=== PATIENT | female | born 1975 | race Two or more races ===

== ENCOUNTER 2018-11-24 13:29 | Emergency (ER) | END 2018-11-24 13:50 | disposition home or self-care (01) | LOC: ER 13:29 | DX: Z53.21 Procedure and treatment not carried out due to patient leaving prior to being seen by health care provider (principal); R10.9 Unspecified abdominal pain ==

== ENCOUNTER 2018-11-24 14:56 | Inpatient (IN) | payer OTHER ==
[2018-11-24] MEDS ORDERED: KETOROLAC TROMETHAMINE 60 MG/2 ML SDV IM ONE (16:39)
--- NOTE | 2018-11-24 16:40 | ER Document Report ---
ED Medical Screen (RME) - General Chief Complaint: Abdominal Pain Stated Complaint: ABDOMINAL PAIN Time Seen by Provider: 11/24/18 16:38 Mode of Arrival: Ambulatory Information source: Patient Notes: Patient is a 43-year-old Kyrgyz-speaking female presented to the emergency department chief complaint of abdominal pain. Patient reports pain has been going on for 1 month. Patient reports pain is located in the right upper quadrant and shoots straight through to her back. She reports associated nausea, chills and headache. She denies any vomiting or diarrhea. Exam: Tenderness to palpation right upper quadrant, negative Roth sign. I have greeted and performed a rapid initial assessment of this patient. A comprehensive ED assessment and evaluation of the patient, analysis of test results and completion of the medical decision making process will be conducted by additional ED providers. Dictation of this chart was performed using voice recognition software; therefore, there may be some unintended grammatical errors. TRAVEL OUTSIDE OF THE [place] IN LAST 30 DAYS: No Physical Exam - Vital signs Vitals: Temp Pulse Resp BP Pulse Ox 98.4 F 91 18 102/60 95 11/24/18 15:17 11/24/18 15:17 11/24/18 15:17 11/24/18 15:17 11/24/18 15:17 Course - Vital Signs Vital signs: Temp Pulse Resp BP Pulse Ox 98.4 F 91 18 102/60 95 11/24/18 15:17 11/24/18 15:17 11/24/18 15:17 11/24/18 15:17 11/24/18 15:17
[2018-11-24 17:18] LABS: ABSOLUTE LYMPHOCYTES (AUTO) 1.9 10^3/uL (0.5-4.7); ABSOLUTE MONOCYTES (AUTO) 0.8 10^3/uL (0.1-1.4); ABSOLUTE NEUT (AUTO) 6.6 10^3/uL (1.7-8.2); BASOPHILS % (AUTO) 0.4 % (0-2); EOSINOPHILS % (AUTO) 0.5 % (0-6); HEMATOCRIT 32.3 % (36.0-47.0); HEMOGLOBIN 10.6 g/dL (12.0-15.5); LYMPHOCYTES % (AUTO) 19.8 % (13-45); MEAN CORPUSCULAR HEMOGLOBIN 28.4 pg (27.0-33.4); MEAN CORPUSCULAR HGB CONC 32.7 g/dL (32.0-36.0); MEAN CORPUSCULAR VOLUME 87 fl (80-97); MONOCYTES % (AUTO) 8.9 % (3-13); PLATELET COUNT 532 10^3/uL (150-450); RED BLOOD COUNT 3.71 10^6/uL (3.72-5.28); RED CELL DISTRIBUTION WIDTH 14.1 % (11.5-14.0); SEGMENTED NEUTROPHILS % (AUTO) 70.4 % (42-78); TOTAL CELLS COUNTED % (AUTO) 100 %; WHITE BLOOD COUNT 9.4 10^3/uL (4.0-10.5)
[2018-11-24 17:23] LABS: APPEARANCE,URINE CLEAR; BILIRUBIN,URINE NEGATIVE (NEGATIVE); COLOR,URINE YELLOW; GLUCOSE, URINE NEGATIVE (NEGATIVE); KETONES,URINE NEGATIVE (NEGATIVE); LEUKOCYTE ESTERASE,URINE TRACE (NEGATIVE); NITRITE,URINE NEGATIVE (NEGATIVE); PROTEIN,URINE NEGATIVE (NEGATIVE); URINE SPECIFIC GRAVITY 1.012
[2018-11-24 17:42] LABS: ALANINE AMINOTRANSFERASE 59 U/L (9-52); ALBUMIN 3.5 g/dL (3.5-5.0); ALKALINE PHOSPHATASE 105 U/L (38-126); ANION GAP 11 (5-19); ASPARTATE AMINO TRANSFERASE 27 U/L (14-36); BILIRUBIN,DIRECT 0.3 mg/dL (0.0-0.4); BILIRUBIN,TOTAL 0.5 mg/dL (0.2-1.3); BLOOD UREA NITROGEN 12 mg/dL (7-20); CARBON DIOXIDE 32 mmol/L (22-30); CHLORIDE 98 mmol/L (98-107); GLUCOSE 89 mg/dL (75-110); POTASSIUM 4.1 mmol/L (3.6-5.0); SODIUM 141.3 mmol/L (137-145); TOTAL PROTEIN 7.4 g/dL (6.3-8.2)
--- NOTE | 2018-11-24 18:45 | RADIOLOGY REPORT (SQ) ---
EXAM DESCRIPTION: U/S ABDOMEN LIMITED W/O DOP COMPLETED DATE/TIME: 11/24/2018 6:32 pm REASON FOR STUDY: RUQ pain COMPARISON: None. TECHNIQUE: Dynamic and static grayscale images acquired of the abdomen and recorded on PACS. Additio nal selected color Doppler and spectral images recorded. LIMITATIONS: None. FINDINGS: PANCREAS: No masses. Visualized pancreatic duct normal caliber. LIVER: No solid masses. Normal echotexture. 3 cm cyst. LIVER VASCULATURE: Normal directional flow of the main portal vein and hepatic veins. GALLBLADDER: No stones. Normal wall thickness. No pericholecystic fluid. ULTRASOUND-DETECTED CORDERO'S SIGN: Negative. INTRAHEPATIC DUCTS AND COMMON DUCT: CBD and intrahepatic ducts normal caliber. No filling defects. INFERIOR VENA CAVA: Not imaged. AORTA: No aneurysm. RIGHT KIDNEY: Normal size, 12.1 cm. There is a complex, partially cystic lesion involving the midpo rtion of the kidney. This measures 4.5 x 4.6 x 3.6 cm. PERITONEAL AND RIGHT PLEURAL SPACE: No ascites or effusions. OTHER: No other significant findings. IMPRESSION: Normal gallbladder. Hepatic cyst. Right renal lesion. Cannot exclude neoplasm. Consi romulo CT without with contrast. TECHNICAL DOCUMENTATION: JOB ID: [id number] [employer]- All Rights Reserved Reading location - IP/workstation name: [email or web address]
--- NOTE | 2018-11-24 21:09 | RADIOLOGY REPORT (SQ) ---
EXAM DESCRIPTION: CT ABDOMEN PELVIS WITH IV CONTRAST COMPLETED DATE/TME: 11/24/2018 19:27 CLINICAL HISTORY: right lower qad pain COMPARISON: None Available TECHNIQUE: Contiguous axial images of the abdomen and pelvis were obtained followed by reconstruction images. This exam was performed according to our departmental dose-optimization program, which includes automated exposure control, adjustment of the mA and/or kV according to patient size and/or use of iterative reconstruction technique. FINDINGS: Abnormal enhancement of the posterior aspect of the right kidney compatible with pyelonephritis. Two focal areas of low-attenuation within the posterior right kidney, one extending into the right perinephric space measuring approximately 1.9 cm compatible with abscess formation. There is no hydronephrosis. Linear opacities within the lungs may represent scar versus subsegmental atelectasis. There are hepatic cysts. Calcifications within the pelvis compatible with phleboliths. The liver, spleen, pancreas and left kidney are within normal limits. There is no hydronephrosis or renal stones. The gallbladder is unremarkable by CT criteria. Adrenal glands are within normal limits. Aorta is of normal caliber and tapering. There is no free fluid in the abdomen or pelvis. There is no bowel obstruction. The appendix is within normal limits. There is no pericecal inflammation. IMPRESSION: Findings compatible with right-sided pyelonephritis with underlying small abscess formation.
[2018-11-24] MEDS ORDERED: MORPHINE SULFATE 10 MG/ML INJ IV PRN ×2 (23:00→23:32)
[2018-11-24] MEDS ORDERED: ZOLPIDEM TARTRATE 5 MG TABLET PO PRN (23:12)
[2018-11-24] MEDS ORDERED: RINGERS SOLUTION,LACTATED 1,000 ML IV PRN (23:12)
[2018-11-24] MEDS ORDERED: MAGNESIUM HYDROXIDE SUSP 30 ML UDCUP PO PRN (23:12)
[2018-11-24] MEDS ORDERED: MAG HYDROX/AL HYDROX/SIMETH SUSP 30 ML UDCUP PO PRN (23:12)
[2018-11-24] MEDS ORDERED: ONDANSETRON HCL INJ/PF 4 MG/2 ML SDV IV PRN (23:12)
[2018-11-24] MEDS ORDERED: NICOTINE 21 MG/24 HR PATCH.TD24 TD PRN (23:23)
[2018-11-24] MEDS ORDERED: ACETAMINOPHEN 650 MG SUPP.RECT PR PRN (23:23)
[2018-11-24] MEDS ORDERED: ACETAMINOPHEN 325 MG TABLET PO PRN (23:23)
[2018-11-24] MEDS ORDERED: ERTAPENEM SODIUM 1 GM in NORMAL SALINE 50 ML IV ONE (23:30)
[2018-11-24] MEDS ORDERED: ERTAPENEM SODIUM INJ 1 GM VIAL IV PRN (23:30)
[2018-11-24] MEDS ORDERED: FAMOTIDINE 20 MG TABLET PO ONE (23:30)
--- NOTE | 2018-11-25 00:48 | ER Document Report ---
ED GI/ - General Chief Complaint: Abdominal Pain Stated Complaint: ABDOMINAL PAIN Time Seen by Provider: 11/24/18 16:38 Mode of Arrival: Ambulatory Information source: Patient Notes: Patient is a 44-year-old female comes emergency room complaining of abdominal pain. Patient states she is had pain in her abdominal area for the past month got progressively worse over the past 2 days. She points to the area around her right abdominal area including the umbilicus area and with pain around the right side. She states it is mostly on the right side but does occasionally venture off to the left. She complains of having some low-grade fevers and chills but no vomiting but excessive amount of nausea. She denies any dysuria or any hematuria. Patient states that she only has had surgery in her abdominal area with 3 C-sections. She is also had a common cyst removed from her belly. She has a history of low blood pressure not high blood pressure. Last menstrual period was due on the but she actually obtained it on the of the month which is unusual for her. Last bowel movement she had was on Thursday. She states that she is eating and drinking well. Patient only speaks U[place]ayan and I had to use the interpretation line twice tonight the connection number on the first time was [id number] and on the second connection it was [id number] TRAVEL OUTSIDE OF THE [place] IN LAST 30 DAYS: No - HPI Patient complains to provider of: Abdominal pain Onset: Other - 1 month Timing/Duration: Gradual Quality of pain: Sharp, Throbbing Severity at maximum: Severe Severity in ED: Moderate Pain Level: 3 Location: RLQ, Right flank Vaginal bleeding (Compared to normal period): None Menstrual period history: Abnormal : 3 Para: 3 Sexual history: Active - Related Data Allergies/Adverse Reactions: No Known Allergies Allergy (Unverified 11/24/18 17:52) Past Medical History - General Information source: Patient - Social History Smoking Status: Never Smoker Cigarette use (# per day): No Chew tobacco use (# tins/day): No Smoking Education Provided: No Frequency of alcohol use: None Drug Abuse: None Lives with: Spouse/Significant other Family History: Reviewed & Not Pertinent Patient has suicidal ideation: No Patient has homicidal ideation: No - Past Medical History Cardiac Medical History: Denies: Hx Coronary Artery Disease, Hx Hypertension Pulmonary Medical History: Denies: Hx Asthma, Hx COPD Neurological Medical History: Denies: Hx Seizures Endocrine Medical History: Denies: Hx Diabetes Mellitus Type 1, Hx Diabetes Mellitus Type 2 Renal/ Medical History: Denies: Hx Peritoneal Dialysis Malignancy Medical History: Reports: None GI Medical History: Denies: Hx Cirrhosis, Hx Hepatitis Musculoskeletal Medical History: Denies Hx Arthritis, Denies Hx Fibromyalgia Skin Medical History: Denies Hx Eczema, Denies Hx Psoriasis Traumatic Medical History: Reports: None Infectious Medical History: Reports: None. Denies: Hx Hepatitis Past Surgical History: Reports: None Review of Systems - Review of Systems Constitutional: No symptoms reported EENT: No symptoms reported Cardiovascular: No symptoms reported Respiratory: No symptoms reported Gastrointestinal: See HPI, Abdomen distended, Abdominal pain, Nausea. denies: Vomiting Genitourinary: No symptoms reported Female Genitourinary: No symptoms reported Musculoskeletal: No symptoms reported Skin: No symptoms reported Hematologic/Lymphatic: No symptoms reported Neurological/Psychological: No symptoms reported -: Yes All other systems reviewed and negative Physical Exam - Vital signs Vitals: Temp Pulse Resp BP Pulse Ox 98.4 F 91 18 102/60 95 11/24/18 15:17 11/24/18 15:17 11/24/18 15:17 11/24/18 15:17 11/24/18 15:17 Interpretation: Hypotensive - Notes Notes: PHYSICAL EXAMINATION: GENERAL: Well-appearing, well-nourished and in no acute distress. HEAD: Atraumatic, normocephalic. EYES: Pupils equal round and reactive to light, extraocular movements intact, conjunctiva are normal. ENT: Nares patent, oropharynx clear without exudates. Moist mucous membranes. NECK: Normal range of motion, supple without lymphadenopathy LUNGS: Breath sounds clear to auscultation bilaterally and equal. No wheezes rales or rhonchi. HEART: Regular rate and rhythm without murmurs ABDOMEN: Examination patient's abdomen shows to be somewhat distended. Some tympany in the upper quads to percussion. She deftly has some guarding on her right lower quadrant area especially near the umbilicus. She has negative rebound. She has negative psoas. She has negative obturator. Patient displays moderate amount of right sided flank pain to percussion. Tenderness on the right abdomen and goes into the right upper quadrant as well. But she does not display a positive Roth sign. She has bowel sounds that are present in all 4 quadrants. Female : deferred Musculoskeletal: Normal range of motion, no pitting or edema. No cyanosis. NEUROLOGICAL: . Normal speech, normal gait. Normal sensory, motor exams PSYCH: Normal mood, normal affect. SKIN: Warm, Dry, normal turgor, no rashes or lesions noted. Course - Re-evaluation Re-evalutation: 11/25/18 00:[address] had an unusual finding. It stated him findings from the radiologist abnormal enhancement the posterior aspect of the right kidney compatible with pyelonephritis. 2 focal areas of low-attenuation within the posterior right kidney, one extending into the right perinephric space measuring approximately 1.9 cm compatible with abscess formation there is no hydronephrosis. Linear opacities within the lungs may represent scar versus subsegmental atelectasis. There are hepatic cysts. Calcifications within the pelvis compatible with phleboliths. The liver spleen pancreas and left kidney are within normal limits there is no hydronephrosis or renal stones. The gallbladder is unremarkable by CT criteria. Adrenal glands are within normal limits. Aorta is of normal caliber and tapering. There is no free fluid in the abdomen or pelvis. There is no bowel obstruction. The appendix is within normal limits. There is no per icecal inflammation. Given these findings it is apparent the patient has a renal abscess. I discus sed the case first with my attending Dr. Moreira and she was concerned with being an abscess and felt like she had to be admitted. I contacted hospitalist [employer] special education teacher dandre and explained to him the situation and he felt that this was something that since we did not have a specialist in urology here if needed to be shipped out. I went and talked to the patient to find out that she is basically living in the car with her boyfriend and 2 kids. They have just moved here from [facility] and neither have a job yet. The patient elected for me to pick place for her to go. I attempted to contact [facility] and I put in contact with Christine the transfer center nurse. She was kind enough to connect me to the urologist high school special education teacher explained to him the situation and CT report results to include the labs which were basically normal with no white count. And a urine that was normal with just a trace of blood. He informed me that this is a really weird finding because pyelonephritis is a diagnosis of exclusion and CT is not a good representation of this. He felt th at the abscess was interesting but felt that if we shipped the patient there that it would go to medicine and they will have interventional radiology drain it. He was very acceptable of the idea of sending her there if we wanted to but we have to go through the emergency room. Emergency room there from my understanding had a 75 patient back up to be admitted to the hospital. I felt that I should at least inform her hospitalist of the information I was given by a urological specialist. I recontacted and explained to him what I was told by Dr. Lagunas and he graciously accepted patient into the hospital service here at the hospital and will contact interventional radiology tomorrow. - Vital Signs Vital signs: Temp Pulse Resp BP Pulse Ox 97.9 F 67 16 102/56 L 97 11/24/18 21:19 11/24/18 21:19 11/24/18 21:19 11/24/18 21:19 11/24/18 21:19 - Laboratory Result Diagrams: 11/24/18 16:50 11/24/18 16:50 Laboratory results interpreted by me: 11/24/18 11/24/18 11/24/18 16:50 16:50 16:50 RBC 3.71 L Hgb 10.6 L Hct 32.3 L RDW 14.1 H Plt Count 532 H Carbon Dioxide 32 H Creatinine 0.50 L ALT 59 H Urine Blood SMALL H Urine Urobilinogen 4.0 H Ur Leukocyte Esterase TRACE H Discharge - Discharge Clinical Impression: Renal abscess, right, Pyelonephritis Condition: Stable Disposition: ADMITTED INPATIENT Admitting Provider: Speedy (Hospitalist) Unit Admitted: Medical Floor
[2018-11-25 02:19] LABS: URINE AMPHETAMINES SCREEN NEGATIVE; URINE BARBITURATES SCREEN NEGATIVE; URINE BENZODIAZEPINES SCREEN NEGATIVE; URINE COCAINE SCREEN NEGATIVE; URINE MARIJUANA (THC) SCREEN NEGATIVE; URINE METHADONE SCREEN NEGATIVE; URINE PHENCYCLIDINE SCREEN NEGATIVE
[2018-11-25] MEDS: MORPHINE SULFATE 10 MG/ML INJ IV PRN ×2 (02:45→05:07)
--- NOTE | 2018-11-25 04:17 | PDOC H&P ---
History of Present Illness Admission Date/PCP: 11/24/2018 No PCP Patient complains of: Abdominal pain History of Present Illness: ARACELIS NAVA is a 43 year old female who presented to the emergency room with a 1 month history of abdominal pain. The patient admitted to a 1 month history of continuous deep right upper quadrant abdominal pain with radiation to the right costovertebral angle area. The pain has been of moderate to severe intensity and she has not identified any aggravating or ameliorating factors for the pain. Her pain has been associated with chronic nausea and intermittent chills without fever and intermittent headaches. Her pain and accompanying symptoms have significantly worsened over the last 2 to 3 days. She denies prior similar episodes. In the emergency room she was found to have a right perinephric abscess and was subsequently admitted to the hospital for initiation of antibiotic therapy and an interventional radiology consultation to aspirate/drain the right perinephric abscess and obtain content for cytology and culture. Past Medical History Cardiac Medical History: Denies: Coronary Artery Disease, Hypertension Pulmonary Medical History: Denies: Asthma, Chronic Obstructive Pulmonary Disease (COPD) EENT Medical History: Denies: Eyes - Eye problems, Ears - Ear problems Neurological Medical History: Denies: Multiple Sclerosis, Seizures Endocrine Medical History: Denies: Diabetes Mellitus Type 1, Diabetes Mellitus Type 2 Renal/ Medical History: Denies: Chronic Kidney Disease, Nephrolithiasis Malignancy Medical History: Reports: None GI Medical History: Denies: Cirrhosis, Hepatitis Musculoskeltal Medical History: Denies: Arthritis, Fibromyalgia Skin Medical History: Denies: Eczema, Psoriasis Psychiatric Medical History: Denies: Alcohol Dependency, Substance Abuse, Tobacco Dependency Traumatic Medical History: Reports: None Hematology: Denies: Anemia, Bleeding Tendencies Infectious Medical History: Reports: None Past Surgical History Past Surgical History: Reports: Section - X 3, Other - Ovarian cystectomy Social History Information Source: Patient Lives with: Spouse/Significant other Smoking Status: Never Smoker Frequency of Alcohol Use: None Hx Recreational Drug Use: No Drugs: None Hx Prescription Drug Abuse: No - Advance Directive Resuscitation Status: Full Code Surrogate healthcare decision maker:: Darnell Newton Family History Family History: CAD. denies: DM, Hypertension, Malignancy Parental Family History Reviewed: Yes Children Family History Reviewed: No Sibling(s) Family History Reviewed.: Yes Medication/Allergy Allergies/Adverse Reactions: No Known Allergies Allergy (Unverified 11/24/18 17:52) Review of Systems Constitutional: PRESENT: as per HPI, chills, headache(s). ABSENT: fever(s) Eyes: ABSENT: visual disturbances, other - Eye pain Ears: ABSENT: hearing changes, other - Ear pain Nose, Mouth, and Throat: ABSENT: mouth pain, sore throat Cardiovascular: ABSENT: chest pain, palpitations Respiratory: ABSENT: cough, dyspnea Gastrointestinal: PRESENT: as per HPI, abdominal pain, nausea. ABSENT: constipation, diarrhea, vomiting Genitourinary: ABSENT: dysuria, hematuria Musculoskeletal: PRESENT: as per HPI, back pain. ABSENT: joint swelling, muscle weakness Integumentary: ABSENT: pruritus, rash Neurological: ABSENT: confusion, convulsions, focal weakness, memory loss Psychiatric: ABSENT: anxiety, depression Endocrine: ABSENT: cold intolerance, heat intolerance Hematologic/Lymphatic: ABSENT: easy bleeding, easy bruising Physical Exam Vital Signs: Temp Pulse Resp BP Pulse Ox 97.9 F 67 16 102/56 L 97 11/24/18 21:19 11/24/18 21:19 11/24/18 21:19 11/24/18 21:19 11/24/18 21:19 Intake & Output 11/22/18 11/23/18 11/24/18 23:59 23:59 23:59 Weight 78.6 kg General appearance: PRESENT: no acute distress, cooperative Head exam: PRESENT: atraumatic, normocephalic Eye exam: ABSENT: conjunctival injection, scleral icterus Ear exam: PRESENT: normal external ear exam. ABSENT: drainage Mouth exam: PRESENT: dry mucosa, neck supple Neck exam: ABSENT: thyromegaly, tracheal deviation Respiratory exam: PRESENT: clear to auscultation chung, symmetrical, unlabored Cardiovascular exam: PRESENT: RRR. ABSENT: clicks, gallop, rubs Pulses: PRESENT: normal radial pulses, normal dorsalis pedis pul Vascular exam: PRESENT: normal capillary refill. ABSENT: pallor GI/Abdominal exam: PRESENT: normal bowel sounds, soft, tenderness - Moderate right upper quadrant tenderness on deep palpation Rectal exam: PRESENT: deferred Gentrourinary exam: PRESENT: other - Moderate tenderness to percussion over the right costovertebral angle Extremities exam: ABSENT: joint swelling, pedal edema, tenderness Musculoskeletal exam: PRESENT: full ROM, normal inspection Neurological exam: PRESENT: alert, oriented to person, oriented to place, oriented to time, CN II-XII grossly intact. ABSENT: motor sensory deficit Psychiatric exam: PRESENT: appropriate affect, normal mood Skin exam: PRESENT: dry, intact, warm. ABSENT: jaundice, rash, urticaria Results Laboratory Results: 11/24/18 16:50 11/24/18 16:50 11/24/18 11/24/18 11/24/18 16:50 16:50 16:50 WBC 9.4 RBC 3.71 L Hgb 10.6 L Hct 32.3 L MCV 87 MCH 28.4 MCHC 32.7 RDW 14.1 H Plt Count 532 H Seg Neutrophils % 70.4 Lymphocytes % 19.8 Monocytes % 8.9 Eosinophils % 0.5 Basophils % 0.4 Absolute Neutrophils 6.6 Absolute Lymphocytes 1.9 Absolute Monocytes 0.8 Absolute Eosinophils 0.0 Absolute Basophils 0.0 Sodium 141.3 Potassium 4.1 Chloride 98 Carbon Dioxide 32 H Anion Gap 11 BUN 12 Creatinine 0.50 L Est GFR ( Amer) > 60 Est GFR (Non-Af Amer) > 60 Glucose 89 Calcium 9.0 Total Bilirubin 0.5 AST 27 ALT 59 H Alkaline Phosphatase 105 Total Protein 7.4 Albumin 3.5 Serum HCG, Qual NEGATIVE Urine Color Urine Appearance Urine pH Ur Specific [place] Urine Protein Urine Glucose (UA) Urine Ketones Urine Blood Urine Nitrite Ur Leukocyte Esterase Urine WBC (Auto) Urine RBC (Auto) 11/24/18 16:50 WBC RBC Hgb Hct MCV MCH MCHC RDW Plt Count Seg Neutrophils % Lymphocytes % Monocytes % Eosinophils % Basophils % Absolute Neutrophils Absolute Lymphocytes Absolute Monocytes Absolute Eosinophils Absolute Basophils Sodium Potassium Chloride Carbon Dioxide Anion Gap BUN Creatinine Est GFR ( Amer) Est GFR (Non-Af Amer) Glucose Calcium Total Bilirubin AST ALT Alkaline Phosphatase Total Protein Albumin Serum HCG, Qual Urine Color YELLOW Urine Appearance CLEAR Urine pH 6.0 Ur Specific [place] 1.012 Urine Protein NEGATIVE Urine Glucose (UA) NEGATIVE Urine Ketones NEGATIVE Urine Blood SMALL H Urine Nitrite NEGATIVE Ur Leukocyte Esterase TRACE H Urine WBC (Auto) 4 Urine RBC (Auto) 2 Impressions: Abdomen Ultrasound 11/24/18 16:39 IMPRESSION: Normal gallbladder. Hepatic cyst. Right renal lesion. Cannot exclude neoplasm. Consider CT without with contrast. Abdomen/Pelvis CT 11/24/18 19:27 IMPRESSION: Findings compatible with right-sided pyelonephritis with underlying small abscess formation. Assessment and Plan - Diagnosis (1) Renal and perinephric abscess Is this a current diagnosis for this admission?: Yes Plan: Interventional radiology consultation will be obtained for aspiration/drainage of the right perinephric abscess. A specimen will be obtained for culture and cytology purposes. This process should be both therapeutic and diagnostic. (2) Pyelonephritis Is this a current diagnosis for this admission?: Yes Plan: Patient was pyelonephritis will be treated initially with ertapenem 1 g IV every 24 hours with the scope of her antibiotic therapy being narrowed once an infectious etiology has been identified. (3) Abdominal pain Qualifiers: Abdominal location: right upper quadrant Qualified Code(s): R10.11 - Right upper quadrant pain Is this a current diagnosis for this admission?: Yes Plan: Patient's abdominal pain will be treated with morphine sulfate 2 to 4 mg IV every 2 hours on a as needed basis per sliding scale. (4) Anemia Qualifiers: Anemia type: unspecified type Qualified Code(s): D64.9 - Anemia, unspecified Is this a current diagnosis for this admission?: Yes Plan: Patient has a normochromic normocytic anemia of uncertain etiology. Initial anemia studies are ordered further evaluation may be obtained either during this inpatient visit or on an outpatient basis as appropriate. - Time Time Spent with patient: 25-34 minutes Medications reviewed and adjusted accordingly: No - No home meds Anticipated discharge: Home - Inpatient Certification Based on my medical assessment, after consideration of the patient's comorbidities, presenting symptoms, or acuity I expect that the services needed warrant INPATIENT care.: Yes I certify that my determination is in accordance with my understanding of Medicare's requirements for reasonable and necessary INPATIENT services [42 CFR 412.3e].: Yes Medical Necessity: Need Close Monitoring Due to Risk of Patient Decompensation, Need for Surgery - Interventional radiology to aspirate/drain her right renal and perinephric abscess, Risk of Complication if Not Cared For in Hospital, Risk of Diagnosis Which Will Require Inpatient Eval/Care/Monitoring
[2018-11-25] MEDS: HEPARIN SOD (PORCINE) 5,000 UNIT/ML 1 ML SYRINGE SUBCUT SCH ×3 (05:13→21:39)
[2018-11-25 06:49] LABS: ABSOLUTE LYMPHOCYTES (AUTO) 1.6 10^3/uL (0.5-4.7); ABSOLUTE MONOCYTES (AUTO) 0.7 10^3/uL (0.1-1.4); ABSOLUTE NEUT (AUTO) 5.4 10^3/uL (1.7-8.2); ABSOLUTE RETICS # 0.039 10^6/uL (0.028-0.122); BASOPHILS % (AUTO) 0.5 % (0-2); EOSINOPHILS % (AUTO) 0.6 % (0-6); HEMATOCRIT 29.5 % (36.0-47.0); LYMPHOCYTES % (AUTO) 20.1 % (13-45); MEAN CORPUSCULAR HEMOGLOBIN 29.1 pg (27.0-33.4); MEAN CORPUSCULAR VOLUME 85 fl (80-97); MONOCYTES % (AUTO) 8.5 % (3-13); PLATELET COUNT 461 10^3/uL (150-450); RED BLOOD COUNT 3.45 10^6/uL (3.72-5.28); RED CELL DISTRIBUTION WIDTH 13.8 % (11.5-14.0); RETICULOCYTE COUNT (AUTO) 1.11 % (0.66-2.85); SEGMENTED NEUTROPHILS % (AUTO) 70.3 % (42-78); TOTAL CELLS COUNTED % (AUTO) 100 %; WHITE BLOOD COUNT 7.7 10^3/uL (4.0-10.5)
[2018-11-25 07:24] LABS: ANION GAP 8 (5-19); BLOOD UREA NITROGEN 8 mg/dL (7-20); CALCIUM 8.7 mg/dL (8.4-10.2); CARBON DIOXIDE 31 mmol/L (22-30); CHLORIDE 103 mmol/L (98-107); GLUCOSE 91 mg/dL (75-110); IRON(TIBC) 26.4 ug/dL (37-170); SODIUM 141.9 mmol/L (137-145)
[2018-11-25 08:12] LABS: FREE T3 2.82 pg/mL (2.77-5.27); FREE T4 (FREE THYROXINE) 0.64 ng/dL (0.78-2.19)
[2018-11-25 08:25] LABS: THYROID STIMULATING HORMONE 3.54 uIU/mL (0.47-4.68)
[2018-11-25 09:42] LABS: FOLATE > 20.00 ng/mL (>2.76)
[2018-11-25 09:47] LABS: INTERNATIONAL RATION (INR) 1.06; PROTHROMBIN TIME 14.4 SEC (11.4-15.4)
[2018-11-25 09:48] LABS: PARTIAL THROMBOPLASTIN TIME 35.3 SEC (23.5-35.8)
[2018-11-25] MEDS ORDERED: MIDAZOLAM 2 MG/2 ML INJ ONE (10:39)
[2018-11-25] MEDS ORDERED: FENTANYL CITRATE INJ/PF 100 MCG/2 ML AMPUL ONE (10:39)
[2018-11-25] MEDS: FAMOTIDINE 20 MG TABLET PO SCH ×2 (12:55→21:39)
[2018-11-25] MEDS: DOCUSATE SODIUM 100 MG/10 ML UDC PO SCH ×2 (12:55→18:28)
--- NOTE | 2018-11-25 13:19 | RADIOLOGY REPORT (SQ) ---
EXAM DESCRIPTION: CT DRAINAGE RETRO/PERITONEAL COMPLETED DATE/TIME: 11/25/2018 11:41 am REASON FOR STUDY: Right perinephric abscess on CT COMPARISON: Abdominal ultrasound 11/24/2018 CT abdomen pelvis 11/24/2018 TECHNIQUE: After obtaining informed consent and explaining the risks and benefits of conscious sedat ion,the patient agreed to the procedure. The patient was brought to the CT suite and was placed prone on the CT gurney. The patient was prepped and draped in the usual sterile fashion. Axial images wer e obtained for targeting of theright mid pole renal complex mass/abscess.. An appropriate access site was selected. IV conscious sedation was administered and physician direction by the registered nurse using 1 milligrams of Versed and 30 micrograms of fentanyl. Physiologic monitoring was provided befo re, during, and after sedation. The total sedation time was 30 minutes. Documentation face to face time, the performing proceduralist, spent monitoring the patient: [address] of the right kidney was performed to localize an approach for the right renal absce ss drainage. A percutaneous site was marked. Time out was performed. After skin prep and local lidocaine for skin and deep tissue anesthesia, an 18 gauge single wall nee dle was used to access the complex right posterior midpole renal mass. There was prompt return of pu rulent material. Aspirate was obtained and sent for Gram stain culture and sensitivity, fungal cultu re and AFB culture. These were submitted to the lab in a sterile container. At this point, a 0.38 guidewire was placed through the 18 gauge needle, coiled in the renal abscess. Tract was dilated with a 7 Russian dilator, and an 8 Russian locking pigtail was placed in the posteri or right renal abscess. Catheter up to an accordion drainage bag. No immediate postprocedure complications. Total of 6.[address] fluoro was used. 34 CT Fluoroscopic images were obtained and saved to PACS. All CT scanners at this facility use dose modulation, iterative reconstruction, and/or weight based d osing when appropriate to reduce radiation dose to as low as reasonably achievable (ALARA). [facility]: Dose Right [facility]: CareDose [facility]: Dose Right [facility]: Teradose 4D [facility]: [employer] RADIATION DOSE: 63 mGy. LIMITATIONS: None. FINDINGS: CT guided right renal abscess aspiration and drainage with CT fluoroscopy and IV conscious sedation. Specimen sent to the lab as above. Indwelling 8 Russian locking pigtail catheter in the p osterior right mid-pole kidney renal abscess IMPRESSION: CT GUIDED RIGHT RENAL ABSCESS DRAINAGE. CULTURES PENDING. NO IMMEDIATE COMPLICATIONS. RIGHT POSTERIOR MIDPOLE 8 GERMAN LOCKING PIGTAIL CATHETER IN PLACE. VACUUM ACCORDION SUCTION BAG TO THE CATHETER. CALL CT WITH ANY QUESTIONS OR IF THERE IS NEED FOR ANY NEW DRAINAGE BAG. IV CONSCIOUS SEDATION CT FLUORO COMMENT: Patient medication list reviewed:Yes- Quality ID# [id number]:Eligible professional attests to docu menting in the medical record they obtained, updated, or reviewed the patient's current medications.. Quality ID [id number]: Final reports for procedures using fluoroscopy that document radiation exposure jerrica ann, or exposure time and number of fluorographic images (if radiation exposure indices are not avail able) TECHNICAL DOCUMENTATION: JOB ID: [id number] Quality ID # [id number]: Final reports with documentation of one or more dose reduction techniques (e.g., A utomated exposure control, adjustment of the mA and/or kV according to patient size, use of iterative reconstruction technique) 2010 [employer]- All Rights Reserved Reading location - IP/workstation name: [email or web address]
[2018-11-25] MEDS ORDERED: RINGERS SOLUTION,LACTATED 1,000 ML IV PRN (18:25)
[2018-11-25] MEDS: ERTAPENEM SODIUM 1 GM in NORMAL SALINE 50 ML IV SCH (21:41)
[2018-11-26] MEDS: HEPARIN SOD (PORCINE) 5,000 UNIT/ML 1 ML SYRINGE SUBCUT SCH ×3 (05:47→21:24)
[2018-11-26 07:54] LABS: ABSOLUTE BASOPHILS # (AUTO) 0.1 10^3/uL (0.0-0.2); ABSOLUTE EOSINOPHILS # (AUTO) 0.1 10^3/uL (0.0-0.6); ABSOLUTE LYMPHOCYTES (AUTO) 1.9 10^3/uL (0.5-4.7); ABSOLUTE MONOCYTES (AUTO) 0.6 10^3/uL (0.1-1.4); ABSOLUTE NEUT (AUTO) 4.8 10^3/uL (1.7-8.2); BASOPHILS % (AUTO) 1.1 % (0-2); HEMATOCRIT 33.4 % (36.0-47.0); HEMOGLOBIN 11.3 g/dL (12.0-15.5); LYMPHOCYTES % (AUTO) 25.7 % (13-45); MEAN CORPUSCULAR HEMOGLOBIN 28.7 pg (27.0-33.4); MEAN CORPUSCULAR HGB CONC 33.7 g/dL (32.0-36.0); MEAN CORPUSCULAR VOLUME 85 fl (80-97); MONOCYTES % (AUTO) 7.7 % (3-13); PLATELET COUNT 548 10^3/uL (150-450); RED BLOOD COUNT 3.93 10^6/uL (3.72-5.28); SEGMENTED NEUTROPHILS % (AUTO) 64.5 % (42-78); TOTAL CELLS COUNTED % (AUTO) 100 %; WHITE BLOOD COUNT 7.4 10^3/uL (4.0-10.5)
[2018-11-26 08:18] LABS: ANION GAP 11 (5-19); BLOOD UREA NITROGEN 6 mg/dL (7-20); CALCIUM 9.2 mg/dL (8.4-10.2); CARBON DIOXIDE 27 mmol/L (22-30); CHLORIDE 101 mmol/L (98-107); GLUCOSE 85 mg/dL (75-110); POTASSIUM 4.3 mmol/L (3.6-5.0); SODIUM 138.8 mmol/L (137-145)
[2018-11-26] MEDS: DOCUSATE SODIUM 100 MG/10 ML UDC PO SCH ×2 (10:30→20:24)
[2018-11-26] MEDS: FAMOTIDINE 20 MG TABLET PO SCH ×2 (10:30→21:24)
[2018-11-26] MEDS ORDERED: BISACODYL 10 MG SUPP.RECT PR PRN (17:49)
--- NOTE | 2018-11-26 18:10 | PDOC PROGRESS REPORT ---
Subjective Progress Note for:: 11/26/18 Subjective:: Feeling better. Complaining of constipation. Reason For Visit: PERINEPHRIC ABSCESS Physical Exam Vital Signs: Temp Pulse Resp BP Pulse Ox 97.9 F 61 17 90/53 L 97 11/26/18 16:28 11/26/18 16:28 11/26/18 16:28 11/26/18 16:28 11/26/18 16:28 Intake & Output 11/25/18 11/26/18 11/27/18 06:59 06:59 06:59 Intake Total 1100 Output Total 400 3700 Balance -400 -2600 Weight 78.2 kg General appearance: PRESENT: no acute distress, well-developed Head exam: PRESENT: atraumatic, normocephalic Respiratory exam: PRESENT: clear to auscultation chung, symmetrical, unlabored. ABSENT: rales, tachypnea, wheezes Cardiovascular exam: PRESENT: RRR, +S1, +S2 GI/Abdominal exam: PRESENT: normal bowel sounds, soft, other - Drain in right flank. ABSENT: distended, tenderness Rectal exam: PRESENT: deferred Neurological exam: PRESENT: alert, awake, oriented to person, oriented to place, oriented to time, oriented to situation, CN II-XII grossly intact. ABSENT: motor sensory deficit Psychiatric exam: PRESENT: appropriate affect, normal mood. ABSENT: agitated, anxious Focused psych exam: ABSENT: delusional, restlessness Results Laboratory Results: 11/26/18 07:20 11/26/18 07:20 11/26/18 11/26/18 07:20 07:20 WBC 7.4 RBC 3.93 Hgb 11.3 L Hct 33.4 L MCV 85 MCH 28.7 MCHC 33.7 RDW 14.0 Plt Count 548 H Seg Neutrophils % 64.5 Lymphocytes % 25.7 Monocytes % 7.7 Eosinophils % 1.0 Basophils % 1.1 Absolute Neutrophils 4.8 Absolute Lymphocytes 1.9 Absolute Monocytes 0.6 Absolute Eosinophils 0.1 Absolute Basophils 0.1 Sodium 138.8 Potassium 4.3 Chloride 101 Carbon Dioxide 27 Anion Gap 11 BUN 6 L Creatinine 0.41 L Est GFR ( Amer) > 60 Est GFR (Non-Af Amer) > 60 Glucose 85 Calcium 9.2 Magnesium 2.2 Impressions: Retroperitoneal Abscess Drainage 11/24/18 00:00 IMPRESSION: CT GUIDED RIGHT RENAL ABSCESS DRAINAGE. CULTURES PENDING. NO IMMEDIATE COMPLICATIONS. RIGHT POSTERIOR MIDPOLE 8 [place] LOCKING PIGTAIL CATHETER IN PLACE. VACUUM ACCORDION SUCTION BAG TO THE CATHETER. CALL CT WITH ANY QUESTIONS OR IF THERE IS NEED FOR ANY NEW DRAINAGE BAG. IV CONSCIOUS SEDATION CT FLUORO Abdomen Ultrasound 11/24/18 16:39 IMPRESSION: Normal gallbladder. Hepatic cyst. Right renal lesion. Cannot exclude neoplasm. Consider CT without with contrast. Abdomen/Pelvis CT 11/24/18 19:27 IMPRESSION: Findings compatible with right-sided pyelonephritis with underlying small abscess formation. Assessment and Plan - Diagnosis (1) Renal and perinephric abscess Is this a current diagnosis for this admission?: Yes Plan: The abscess was drained 2 days ago. Cultures are growing gram-negative bacillus. I expect urine culture and drainage culture to be the same. There is been no significant drainage since the initial aspiration. Typically if there is no drainage or less than 5 to 10 mL over 24 hours the drain can be removed. (2) Constipation Qualifiers: Constipation type: unspecified constipation type Qualified Code(s): K59.00 - Constipation, unspecified Is this a current diagnosis for this admission?: Yes Plan: The patient reports no bowel movement since Thursday. I will utilize a bottle of citrate of magnesia, daily MiraLAX and bisacodyl suppository as needed. - Time Time Spent with patient: 25-34 minutes - Additional time was required for utilization of vamp marker. Anticipated discharge: Home Within: within 48 hours
--- NOTE | 2018-11-26 18:15 | PDOC PROGRESS REPORT ---
Subjective Progress Note for:: 11/25/18 Subjective:: Patient still has some discomfort but appears reasonably comfortable. Reason For Visit: PERINEPHRIC ABSCESS Physical Exam Vital Signs: Temp Pulse Resp BP Pulse Ox 97.9 F 74 18 97/55 L 96 11/25/18 16:29 11/25/18 16:29 11/25/18 16:29 11/25/18 16:29 11/25/18 16:29 Intake & Output 11/24/18 11/25/18 11/26/18 06:59 06:59 06:59 Output Total 400 500 Balance -400 -500 Weight 78.2 kg General appearance: PRESENT: no acute distress, cooperative, well-developed Head exam: PRESENT: atraumatic, normocephalic Respiratory exam: PRESENT: clear to auscultation chung, symmetrical, unlabored. ABSENT: rales, rhonchi, wheezes Cardiovascular exam: PRESENT: RRR, +S1, +S2 GI/Abdominal exam: PRESENT: normal bowel sounds, soft, other - Nephrostomy drain right flank. ABSENT: distended, tenderness Rectal exam: PRESENT: deferred Neurological exam: PRESENT: alert, awake, oriented to person, oriented to place, oriented to time, oriented to situation, other - Via translation Psychiatric exam: PRESENT: appropriate affect, normal mood. ABSENT: agitated, anxious Results Laboratory Results: 11/25/18 06:29 11/25/18 06:29 11/25/18 11/25/18 11/25/18 06:29 06:29 06:29 WBC 7.7 RBC 3.45 L Hgb 10.0 L Hct 29.5 L MCV 85 MCH 29.1 MCHC 34.0 RDW 13.8 Plt Count 461 H Seg Neutrophils % 70.3 Lymphocytes % 20.1 Monocytes % 8.5 Eosinophils % 0.6 Basophils % 0.5 Absolute Neutrophils 5.4 Absolute Lymphocytes 1.6 Absolute Monocytes 0.7 Absolute Eosinophils 0.0 Absolute Basophils 0.0 Retic Count (auto) 1.11 Absolute Retic 0.039 Sodium 141.9 Potassium 4.0 Chloride 103 Carbon Dioxide 31 H Anion Gap 8 BUN 8 Creatinine 0.40 L Est GFR ( Amer) > 60 Est GFR (Non-Af Amer) > 60 Glucose 91 Calcium 8.7 Magnesium 2.3 Iron 26.4 L TIBC 281 % Saturation 9 Ferritin 185.00 H Vitamin B12 688.0 Folate > 20.00 TSH 3.54 Free T4 0.64 L Free T3 pg/mL 2.82 Impressions: Retroperitoneal Abscess Drainage 11/24/18 00:00 IMPRESSION: CT GUIDED RIGHT RENAL ABSCESS DRAINAGE. CULTURES PENDING. NO IMMEDIATE COMPLICATIONS. RIGHT POSTERIOR MIDPOLE 8 [place] AND [place] LOCKING PIGTAIL CATHETER IN PLACE. VACUUM ACCORDION SUCTION BAG TO THE CATHETER. CALL CT WITH ANY QUESTIONS OR IF THERE IS NEED FOR ANY NEW DRAINAGE BAG. IV CONSCIOUS SEDATION CT FLUORO Abdomen Ultrasound 11/24/18 16:39 IMPRESSION: Normal gallbladder. Hepatic cyst. Right renal lesion. Cannot exclude neoplasm. Consider CT without with contrast. Abdomen/Pelvis CT 11/24/18 19:27 IMPRESSION: Findings compatible with right-sided pyelonephritis with underlying small abscess formation. Assessment and Plan - Diagnosis (1) Renal and perinephric abscess Is this a current diagnosis for this admission?: Yes Plan: Small amount of bloody drainage in the drainage bag from the pigtail catheter. The patient does not have any significant discomfort. She is afebrile. Awaiting culture from aspirate. Gram stain shows gram-negative bacilli. (2) Pyelonephritis Is this a current diagnosis for this admission?: Yes Plan: Gram-negative bacilli growing. Await final identification before narrowing the scope of antibiotic therapy. - Time Time Spent with patient: 15-24 minutes Medications reviewed and adjusted accordingly: Yes Anticipated discharge: Home
[2018-11-26] MEDS ORDERED: MAGNESIUM CITRATE 296 ML BOTTLE PO ONE (19:00)
[2018-11-26] MEDS: FERROUS SULFATE 325 MG TABLET PO SCH (20:24)
[2018-11-26] MEDS: ERTAPENEM SODIUM 1 GM in NORMAL SALINE 50 ML IV SCH (21:23)
[2018-11-27] MEDS: HEPARIN SOD (PORCINE) 5,000 UNIT/ML 1 ML SYRINGE SUBCUT SCH ×2 (05:54→13:17)
[2018-11-27 07:42] LABS: ABSOLUTE EOSINOPHILS # (AUTO) 0.1 10^3/uL (0.0-0.6); ABSOLUTE LYMPHOCYTES (AUTO) 1.8 10^3/uL (0.5-4.7); ABSOLUTE MONOCYTES (AUTO) 0.5 10^3/uL (0.1-1.4); ABSOLUTE NEUT (AUTO) 2.9 10^3/uL (1.7-8.2); BASOPHILS % (AUTO) 0.5 % (0-2); EOSINOPHILS % (AUTO) 1.6 % (0-6); HEMATOCRIT 30.9 % (36.0-47.0); HEMOGLOBIN 10.3 g/dL (12.0-15.5); LYMPHOCYTES % (AUTO) 33.7 % (13-45); MEAN CORPUSCULAR HEMOGLOBIN 28.3 pg (27.0-33.4); MEAN CORPUSCULAR HGB CONC 33.4 g/dL (32.0-36.0); MEAN CORPUSCULAR VOLUME 85 fl (80-97); PLATELET COUNT 510 10^3/uL (150-450); RED BLOOD COUNT 3.64 10^6/uL (3.72-5.28); RED CELL DISTRIBUTION WIDTH 13.9 % (11.5-14.0); SEGMENTED NEUTROPHILS % (AUTO) 55.2 % (42-78); TOTAL CELLS COUNTED % (AUTO) 100 %; WHITE BLOOD COUNT 5.3 10^3/uL (4.0-10.5)
[2018-11-27 07:58] LABS: ANION GAP 9 (5-19); BLOOD UREA NITROGEN 7 mg/dL (7-20); CALCIUM 8.7 mg/dL (8.4-10.2); CARBON DIOXIDE 30 mmol/L (22-30); CHLORIDE 101 mmol/L (98-107); GLUCOSE 88 mg/dL (75-110); POTASSIUM 4.7 mmol/L (3.6-5.0); SODIUM 140.3 mmol/L (137-145)
[2018-11-27] MEDS: FERROUS SULFATE 325 MG TABLET PO SCH (09:31)
[2018-11-27] MEDS: DOCUSATE SODIUM 100 MG/10 ML UDC PO SCH (09:31)
[2018-11-27] MEDS: FAMOTIDINE 20 MG TABLET PO SCH (09:31)
[2018-11-27] MEDS ORDERED: POLYETHYLENE GLYCOL 3350 POWDER 17 GM/1 PACKET PO SCH (10:00)
[2018-11-27 14:17] VITALS: BP 80/46
[2018-11-27] MEDS ORDERED: OXYCODONE-ACETAMINOPHEN 5-325 MG TABLET PO ONE (15:30)
--- NOTE | 2018-11-27 18:10 | PDOC DISCHARGE SUMMARY ---
General - Admit/Disc Date/PCP Admission Date/Primary Care Provider: 11/24/18 23:38 Discharge Date: 11/27/18 - Discharge Diagnosis (1) Renal and perinephric abscess Is this a current diagnosis for this admission?: Yes Summary: The patient was found to have an abscess on the right kidney with subsequent pyelonephritis. Interventional radiology placed a nephrostomy drain. The drain produced purulent material. This was cultured and grew E. coli that was found to have extended spectrum beta-lactamase. Once the abscess was drained the patient's pain resolved. On the first day 20 mL of drainage was noted. On the second day it was less than 20 mL. With that in mind, I remove the nephrostomy tube. There was a small amount of serosanguineous drainage. Dressing was applied. Based on the sensitivity results the patient will be discharged on ciprofloxacin 500 mg twice daily for 10 days. The patient was provided with a prescription. The staff faxed it to [facility]. The patient will need follow-up. I believe she is going to follow-up at [facility]. (2) Pyelonephritis Is this a current diagnosis for this admission?: Yes Summary: As above. - Additional Information Resuscitation Status: Full Code Discharge Diet: Regular Discharge Activity: Activity As Tolerated Prescriptions: Ciprofloxacin HCl [Cipro 500 mg Tablet] 500 mg PO BID #20 tablet Home Medications: Ciprofloxacin HCl [Cipro 500 mg Tablet] 500 mg PO BID #20 tablet 11/27/18 Polyethylene Glycol 3350 [Miralax Powder 17 gm/Packet] 17 gm PO DAILY powd.pack 11/27/18 History of Present Illness History of Present Illness: ARACELIS NAVA is a 43 year old female who presented to the hospital with acute worsening of right upper quadrant pain. She is been having pain with nausea and vomiting for approximately 1 month. The pain radiated to the costovertebral angle. Because of the acute worsening of her symptoms over the last several days she presented to the emergency department. During her evaluation she was found to have an elevated white blood cell count as well as a perinephric abscess. Urinalysis was suspicious for infection as well. Both the nephrostomy tube drainage and urine grew E. coli with an extended spectrum beta-lactamase. The bacteria was sensitive to quinolones. I have prescribed 500 mg of ciprofl oxacin twice a day for 10 days after discharge. Hospital Course Hospital Course: Unremarkable hospital course. Pain subsided with decompression of the abscess. Once the culture results identified a bacteria with sensitivities and narrow the patient's antibiotic spectrum and discharge her to home. Of note she was given pain medication approximately 45 minutes prior to her drain removal. She did experience some discomfort but tolerated it well. Physical Exam Vital Signs: Temp Pulse Resp BP Pulse Ox 97.6 F 54 L 14 80/43 L 95 11/27/18 11:58 11/27/18 11:58 11/27/18 11:58 11/27/18 11:58 11/27/18 11:58 Intake & Output 11/26/18 11/27/18 11/28/18 06:59 06:59 06:59 Intake Total 1100 1700 400 Output Total 3700 3450 Balance -2600 -1750 400 Weight 78.8 kg General appearance: PRESENT: no acute distress, cooperative - In via a language interpretation joanne, well-developed Head exam: PRESENT: atraumatic, normocephalic Respiratory exam: PRESENT: clear to auscultation chung, symmetrical, unlabored. ABSENT: rales, rhonchi, tachypnea, wheezes Cardiovascular exam: PRESENT: RRR, +S1, +S2 GI/Abdominal exam: PRESENT: normal bowel sounds, soft. ABSENT: distended, tenderness Neurological exam: PRESENT: alert, awake, oriented to person, oriented to place, oriented to time, oriented to situation, CN II-XII grossly intact. ABSENT: motor sensory deficit Psychiatric exam: PRESENT: appropriate affect. ABSENT: agitated, anxious Focused psych exam: ABSENT: delusional, restlessness Skin exam: PRESENT: other - Nephrostomy tube site without erythema Results Laboratory Results: 11/27/18 07:00 11/27/18 07:00 11/27/18 11/27/18 07:00 07:00 WBC 5.3 RBC 3.64 L Hgb 10.3 L Hct 30.9 L MCV 85 MCH 28.3 MCHC 33.4 RDW 13.9 Plt Count 510 H Seg Neutrophils % 55.2 Lymphocytes % 33.7 Monocytes % 9.0 Eosinophils % 1.6 Basophils % 0.5 Absolute Neutrophils 2.9 Absolute Lymphocytes 1.8 Absolute Monocytes 0.5 Absolute Eosinophils 0.1 Absolute Basophils 0.0 Sodium 140.3 Potassium 4.7 Chloride 101 Carbon Dioxide 30 Anion Gap 9 BUN 7 Creatinine 0.40 L Est GFR ( Amer) > 60 Est GFR (Non-Af Amer) > 60 Glucose 88 Calcium 8.7 Magnesium 2.3 11/24/18 16:50 Clean Catch Midstream Urine Culture - Final Escherichia Coli Esbl Impressions: Retroperitoneal Abscess Drainage 11/24/18 00:00 IMPRESSION: CT GUIDED RIGHT RENAL ABSCESS DRAINAGE. CULTURES PENDING. NO IMMEDIATE COMPLICATIONS. RIGHT POSTERIOR MIDPOLE 8 [place] LOCKING PIGTAIL CATHETER IN PLACE. VACUUM ACCORDION SUCTION BAG TO THE CATHETER. CALL CT WITH ANY QUESTIONS OR IF THERE IS NEED FOR ANY NEW DRAINAGE BAG. IV CONSCIOUS SEDATION CT FLUORO Abdomen Ultrasound 11/24/18 16:39 IMPRESSION: Normal gallbladder. Hepatic cyst. Right renal lesion. Cannot exclude neoplasm. Consider CT without with contrast. Abdomen/Pelvis CT 11/24/18 19:27 IMPRESSION: Findings compatible with right-sided pyelonephritis with underlying small abscess formation. Qualifiers - * PATIENT BEING DISCHARGED WITH ANY OF THE FOLLOWING DIAGNOSIS: No Acute Heart Failure Is this a Heart Failure Patient?: No Plan Time Spent: Greater than 30 Minutes
== END 2018-11-27 16:08 | DRG 690 ==
LOC: ER 14:56 → EH 23:38 → 2N 11-25 02:00
PROVIDERS: ADMIT Emergency Medicine; ATTEND Emergency Medicine
PROC: 0T9030Z Drainage of Right Kidney with Drainage Device, Percutaneous Approach (ICD-10-PCS; principal; 2018-11-25)
DX: N15.1 Renal and perinephric abscess (principal); B96.20 Unspecified Escherichia coli [E. coli] as the cause of diseases classified elsewhere; N12 Tubulo-interstitial nephritis, not specified as acute or chronic; K59.00 Constipation, unspecified; D64.9 Anemia, unspecified; Z82.49 Family history of ischemic heart disease and other diseases of the circulatory system
CPT/HCPCS: 36415; 49406; 74177; 76705; 80048; 80053; 80307; 81001; 82607; 82728; 82746; 83540; 83550; 83735; 84439; 84443; 84481; 84703; 85025; 85045; 85610; 85730; 87015; 87040; 87070; 87075; 87077; 87086; 87088; 87101; 87116; 87186; 87205; 87206; 88305; 96372; 99285; C1729; C1769; C1894; J1335; J1644; J1885; J2250; J2270; J3010; J3490; J7120

== ENCOUNTER 2019-01-22 11:52 | Emergency (ER) | payer OTHER ==
--- NOTE | 2019-01-22 12:33 | ER Document Report ---
ED General - General Chief Complaint: Sore Throat Stated Complaint: SORE THROAT Time Seen by Provider: 01/22/19 12:11 Mode of Arrival: Ambulatory Information source: Patient Notes: 43-year-old female presented to ED for complaint of fever sore throat x4 days. She states she is also having diarrhea stools does not know whether she is or not because she has not had a period in a while. She states she would like to be checked for test as well as to know why she is having diarrhea. She states she has had 2 soft stools today. She states she has had a fever but is never taken her temperature so it is a subjective fever. Patient is alert oriented respirations regular and unlabored speaking in full sentences used button clamper [id number] patient speaks Welsh. Patient states she is a former smoker but now uses an electronic cigarette does not smoke or use any drugs does not work and lives with her sons. She denies any past medical history except for what she was diagnosed with on her last visit to the emergency room where she was admitted for pyelonephritis and renal abscess. TRAVEL OUTSIDE OF THE [place] IN LAST 30 DAYS: No - HPI Onset: Other Onset/Duration: Gradual - 4 days Quality of pain: Achy - Body aches Severity: Moderate Pain Level: 4 Associated symptoms: Body/muscle aches, Nonproductive cough, Diarrhea, Fever, Rhinnorhea, Sinus pain/drainage, Sore throat. denies: Nausea, Vomiting Exacerbated by: Denies Relieved by: Denies Similar symptoms previously: Yes Recently seen / treated by doctor: No - Related Data Allergies/Adverse Reactions: No Known Allergies Allergy (Verified 01/22/19 11:53) Past Medical History - General Information source: Patient - Social History Smoking Status: Former Smoker - Uses electronic cigarette now Cigarette use (# per day): No Smoking Education Provided: No Frequency of alcohol use: None Drug Abuse: None Lives with: Family - Signs Family History: CAD. denies: DM, Hypertension, Malignancy - Past Medical History Cardiac Medical History: Reports: None Pulmonary Medical History: Reports: None EENT Medical History: Reports: None Endocrine Medical History: Reports: None Renal/ Medical History: Reports: Hx Ovarian Cysts, Other - Pyelonephritis and renal abscess last visit Malignancy Medical History: Reports: None GI Medical History: Reports: None Musculoskeletal Medical History: Reports None Skin Medical History: Reports None Psychiatric Medical History: Reports: None Traumatic Medical History: Reports: None Infectious Medical History: Reports: None Past Surgical History: Reports: Hx Section - X 3, Other - Ovarian cystectomy Review of Systems - Review of Systems Constitutional: Chills, Fever, Recent illness EENT: Sinus discharge, Throat pain Cardiovascular: No symptoms reported Respiratory: No symptoms reported Gastrointestinal: Diarrhea Genitourinary: No symptoms reported Female Genitourinary: No symptoms reported Musculoskeletal: Muscle pain - Body aches joint aches Skin: No symptoms reported Hematologic/Lymphatic: No symptoms reported Neurological/Psychological: No symptoms reported -: Yes All other systems reviewed and negative Physical Exam - Vital signs Vitals: Temp Pulse Resp BP Pulse Ox 98.1 F 71 16 106/71 99 01/22/19 12:04 01/22/19 12:04 01/22/19 12:04 01/22/19 12:04 01/22/19 12:04 Interpretation: Normal - General General appearance: Appears well, Alert - HEENT Head: Normocephalic, Atraumatic Eyes: Normal Pupils: PERRL Ears: Normal External canal: Normal Tympanic membrane: Normal Sinus: Normal Nasal: Purulent discharge, Swelling Mouth/Lips: Normal Mucous membranes: Normal Pharynx: Erythema, Post nasal drainage. No: Exudate, Peritonsillar abscess Neck: Normal - Respiratory Respiratory status: No respiratory distress Chest status: Nontender Breath sounds: Normal Chest palpation: Normal - Cardiovascular Rhythm: Regular Heart sounds: Normal auscultation Murmur: No - Abdominal Inspection: Normal Distension: No distension Bowel sounds: Hyperactive Tenderness: Nontender. No: Tender Organomegaly: No organomegaly. No: Hepatomegaly, Splenomegaly, Mass - Back Back: Normal, Nontender - Extremities General upper extremity: Normal inspection, Nontender, Normal color, Normal ROM, Normal temperature General lower extremity: Normal inspection, Nontender, Normal color, Normal ROM, Normal temperature, Normal weight bearing. No: Felton's sign - Neurological Neuro grossly intact: Yes Cognition: Normal Orientation: AAOx4 Dov Coma Scale Eye Opening: Spontaneous [place] Coma Scale Verbal: Oriented [place] Coma Scale Motor: Obeys Commands Dov Coma Scale Total: 15 Speech: Normal Motor strength normal: LUE, RUE, LLE, RLE Sensory: Normal - Psychological Associated symptoms: Normal affect, Normal mood - Skin Skin Temperature: Warm Skin Moisture: Dry Skin Color: Normal Course - Re-evaluation Re-evalutation: 01/22/19 18:45 After performing a Medical Screening Examination, I estimate there is LOW risk for ACUTE CORONARY SYNDROME, RESPIRATORY FAILURE, SEPSIS OR MENINGITIS, thus I consider the discharge disposition reasonable. I have reevaluated this patient multiple times and no significant life threatening changes are noted. The patient and I have discussed the diagnosis and risks, and we agree with discharging home with close follow-up. We also discussed returning to the Emergency Department immediately if new or worsening symptoms occur. We have discussed the symptoms which are most concerning (e.g., changing or worsening pain, trouble swallowing or breathing, neck stiffness, fever) that necessitate immediate return. - Vital Signs Vital signs: Temp Pulse Resp BP Pulse Ox 98.3 F 77 17 110/65 98 01/22/19 13:54 01/22/19 13:54 01/22/19 13:54 01/22/19 13:54 01/22/19 13:54 - Laboratory Laboratory results interpreted by me: 01/22/19 12:46 Urine Blood SMALL H Discharge - Discharge Clinical Impression: Sore throat (viral) URI (upper respiratory infection) Qualifiers: URI type: unspecified viral URI Qualified Code(s): J06.9 - Acute upper respiratory infection, unspecified Diarrhea Qualifiers: Diarrhea type: unspecified type Qualified Code(s): R19.7 - Diarrhea, unspecified Condition: Stable Disposition: HOME, SELF-CARE Instructions: Family Physicians / Practices Additional Instructions: SORE THROAT: Sore throats may be caused by viruses, bacteria, or fungi. Most are due to a virus, and must get better on their own. Bacterial sore throats, particularly those due to "strep," need treatment with antibiotics. If an antibiotic is prescribed, be sure to take the medication for a full 10 days. Failure to take the antibiotic can result in complications such as rheumatic fever. Sometimes, an injection of antibiotics is given instead of p ills or liquid. This single "shot" is equal in effectiveness to the oral medication. To relieve symptoms, take acetaminophen for pain. Sip clear liquids frequently, or eat popsicles or ice chips. Anesthetic sprays or lozenges may help. Make sure the air in the room is not too dry. Avoid using decongestants or antihistamines. Call the doctor if there is no improvement in two days, or if you have difficulty breathing, increasing throat pain, high fever, rash, or frequent vomiting. UPPER RESPIRATORY ILLNESS: You have a viral infection of the respiratory passages -- a "cold." This common infection causes nasal congestion, drainage, and often sore throat and cough. It is highly contagious. The disease usually lasts about 10 to 14 days. There is no "cure" for the viral infection -- it must run its course. If there is a complication, such as bacterial infection in the nose, sinuses, middle ear, or bronchial tubes, antibiotics may be required. The antibiotics won't affect the virus. Drink plenty of fluids. A humidifier may help. An expectorant medication or decongestant may make you more comfortable. Use acetaminophen or ibuprofen for fever or aches. See the doctor if fever persists over two days, if there is any significant worsening of your symptoms, or if you simply fail to improve as expected. USE OF ACETAMINOPHEN (Tylenol): Acetaminophen may be taken for pain relief or fever control. It's much safer than aspirin, offering a wider range of "safe" dosages. It is safe during . Some brand names are Tylenol, Panadol, Datril, Anacin 3, Tempra, and Liquiprin. Acetaminophen can be repeated every four hours. The following are maximum recommended dosages: >89 pounds or adults 650 mg to 900 mg Acetaminophen can be repeated every four hours. Maximum dose not to exceed 4000 mg a day. DIARRHEA, NON-SPECIFIC: Diarrhea means frequent, watery stools. There are many causes. Any problem that keeps the intestinal tract from absorbing water from the stool can lead to diarrhea. A sudden new diarrhea problem is usually caused by a virus, food sensitivity, toxic bacteria, or drugs. In this case, we expect the problem to go away soon. Testing is done only if you seem seriously ill from the diarrhea. If you have chronic diarrhea, or diarrhea that keeps coming back, we need to find out why. Chronic diarrhea can be due to inflammation of the bowels such as Crohn's disease or ulcerative colitis, food sensitivity such as intolerance to lactose or wheat protein, irritable bowel syndrome, and other problems. If your diarrhea is a significant problem but it's not clear why you have it, we'll refer you to a specialist for further testing. During an episode of diarrhea, drink small amounts (two to six ounces) of clear liquids (soft drinks, sport drinks, herb teas, broth, etc). Take fluids frequently to prevent dehydration. It's usually not a problem to take mild anti- diarrhea medication such as Kaopectate or Pepto-Bismol. As the diarrhea eases, advance to small amounts of bland food (mashed potato, toast) for 24 hours. Call the physician if blood appears in your vomit or stool, if vomiting lasts longer than 24 hours, if the abdominal pain worsens or becomes localized to one area, if you develop high fever, or if you become lightheaded and weak. VIRAL SYNDROME: The physician has diagnosed a viral infection. Viruses not only cause "colds," but can cause many different symptoms including generalized aching, fever, headache, cough, diarrhea, nausea, vomiting, and fatigue. The treatment, for the most part, is simply relief of symptoms. This means that antibiotics are usually not given. Rest, fluids, pain medications and, occasionally, medication for the specific symptoms that are most bothersome will be prescribed. Use good handwashing to avoid passing the virus to others. Shared toys should be cleaned with disinfectant. Clean the toilets, sinks, and counter surfaces in bathrooms. Launder clothing in hot water. Contact the physician if you develop any new or unusual symptoms such as severe headache, stiff neck, high fever, chest pain, productive cough, or shortness of breath. You should be rechecked if you don't see marked improvement within seven to 10 days. You were treated with Claritin 10 mg, Sudafed 30 mg, Mucinex 600 mg, and ibuprofen 600 mg, in the emergency room for your cough cold congestion and sore throat. Do not have Chloraseptic [place] in the emergency room so I do not have any to give you at this time. You can use throat lozenges or what level will help to soothe your throat. If you gargle with salt and soda solution 3 times a day this will also help with your sore throat. Salt and soda solution 1 quart of water 1 tablespoon of salt 1 teaspoon of baking soda Mixed 3 ingredients together and boil for 1 minute Placed in a covered quart jar Use 1/2 ounce of cold solution to gargle 3 times a day FOLLOW-UP CARE: If you have been referred to a physician for follow-up care, call the physicians office for an appointment as you were instructed or within the next two days. If you experience worsening or a significant change in your symptoms, notify the physician immediately or return to the Emergency Department at any time for re-evaluation. Forms: Smoking Cessation Education
[2019-01-22 13:05] LABS: APPEARANCE,URINE CLEAR; BILIRUBIN,URINE NEGATIVE (NEGATIVE); COLOR,URINE YELLOW; GLUCOSE, URINE NEGATIVE (NEGATIVE); KETONES,URINE NEGATIVE (NEGATIVE); LEUKOCYTE ESTERASE,URINE NEGATIVE (NEGATIVE); NITRITE,URINE NEGATIVE (NEGATIVE); PROTEIN,URINE NEGATIVE (NEGATIVE); URINE SPECIFIC GRAVITY 1.008; UROBILINOGEN,URINE NEGATIVE mg/dL (<2.0)
[2019-01-22] MEDS ORDERED: IBUPROFEN 600 MG TABLET PO ONE (13:42)
[2019-01-22] MEDS ORDERED: PSEUDOEPHEDRINE HCL 30 MG TABLET PO ONE (13:42)
[2019-01-22] MEDS ORDERED: LORATADINE 10 MG TABLET PO ONE (13:42)
[2019-01-22] MEDS ORDERED: GUAIFENESIN 600 MG TABLET.SA PO ONE (13:42)
[2019-01-22 13:56] VITALS: BP 110/65
== END 2019-01-22 13:56 | disposition home or self-care (01) ==
LOC: ER 11:52
DX: J06.9 Acute upper respiratory infection, unspecified (principal); R19.7 Diarrhea, unspecified; J02.9 Acute pharyngitis, unspecified; B97.89 Other viral agents as the cause of diseases classified elsewhere; R50.9 Fever, unspecified; M79.10 Myalgia, unspecified site; R05 Cough; J34.89 Other specified disorders of nose and nasal sinuses; F17.290 Nicotine dependence, other tobacco product, uncomplicated
CPT/HCPCS: 81001; 81025; 82272; 87045; 87070; 87077; 87205; 87880; 89055; 99283

== ENCOUNTER 2019-04-08 07:15 | Emergency (ER) | payer OTHER ==
[2019-04-08] MEDS ORDERED: NORMAL SALINE 1000 ML 1,000 ML IV ONE (08:48)
--- NOTE | 2019-04-08 08:49 | ER Document Report ---
ED General - General Chief Complaint: Abdominal Pain Stated Complaint: ABDOMINAL PAIN Time Seen by Provider: 04/08/19 08:04 TRAVEL OUTSIDE OF THE [place] IN LAST 30 DAYS: No - HPI Notes: 43 y/o presenting for months of intermittent abdominal cramping, constipation and bilateral knee pain she does not have a pcp and states she came here as she has nowhere else to go no fever, vomiting no medication tried no injuries to her knees she states she has been told she has arthritis denies urinary pain - Related Data Allergies/Adverse Reactions: No Known Allergies Allergy (Verified 04/08/19 07:30) Past Medical History - Social History Smoking Status: Unknown if Ever Smoked Family History: CAD. denies: DM, Hypertension, Malignancy - Past Medical History Cardiac Medical History: Denies: Hx Hypertension Pulmonary Medical History: Denies: Hx Asthma, Hx COPD Neurological Medical History: Denies: Hx Seizures Endocrine Medical History: Denies: Hx Diabetes Mellitus Type 1, Hx Diabetes Mellitus Type 2 Renal/ Medical History: Reports: Hx Ovarian Cysts. Denies: Hx Peritoneal Dialysis Musculoskeletal Medical History: Denies Hx Arthritis Past Surgical History: Reports: Hx Section - X 3, Other - Ovarian cystectomy Review of Systems - Review of Systems Constitutional: No symptoms reported EENT: No symptoms reported Cardiovascular: No symptoms reported Respiratory: No symptoms reported Gastrointestinal: Constipation. denies: Abdominal pain, Vomiting Genitourinary: No symptoms reported Female Genitourinary: No symptoms reported Musculoskeletal: Joint pain. denies: Joint swelling Skin: No symptoms reported Hematologic/Lymphatic: No symptoms reported Neurological/Psychological: No symptoms reported Physical Exam - Vital signs Vitals: Temp Pulse Resp BP Pulse Ox 98.0 F 73 18 104/68 98 04/08/19 07:39 04/08/19 07:39 04/08/19 07:39 04/08/19 07:39 04/08/19 07:39 Interpretation: Normal - General General appearance: Appears well, Alert - HEENT Head: Normocephalic, Atraumatic Eyes: Normal Pupils: PERRL - Respiratory Respiratory status: No respiratory distress Chest status: Nontender Breath sounds: Normal Chest palpation: Normal - Cardiovascular Rhythm: Regular Heart sounds: Normal auscultation Murmur: No - Abdominal Inspection: Normal Distension: No distension Bowel sounds: Normal Tenderness: Nontender Organomegaly: No organomegaly - Back Back: Normal, Nontender - Extremities General upper extremity: Normal inspection, Nontender, Normal color, Normal ROM, Normal temperature General lower extremity: Normal inspection, Nontender, Normal color, Normal ROM, Normal temperature, Normal weight bearing. No: Felton's sign - Neurological Neuro grossly intact: Yes Cognition: Normal Orientation: AAOx4 Dov Coma Scale Eye Opening: Spontaneous [place] Coma Scale Verbal: Oriented [place] Coma Scale Motor: Obeys Commands Dov Coma Scale Total: 15 Speech: Normal Motor strength normal: LUE, RUE, LLE, RLE Sensory: Normal - Psychological Associated symptoms: Normal affect, Normal mood - Skin Skin Temperature: Warm Skin Moisture: Dry Skin Color: Normal Course - Re-evaluation Re-evalutation: 04/08/19 11:57 no focal tenderness in abdomen or knees on exam labs reassuring dc w/ encouragement to establish a pcp recommend miralax for constipation - Vital Signs Vital signs: Temp Pulse Resp BP Pulse Ox 98.0 F 73 18 104/68 98 04/08/19 07:39 04/08/19 07:39 04/08/19 07:39 04/08/19 07:39 04/08/19 07:39 - Laboratory Result Diagrams: 04/08/19 09:38 04/08/19 09:38 Laboratory results interpreted by me: 04/08/19 04/08/19 09:38 09:38 RDW 14.3 H Creatinine 0.46 L Discharge - Discharge Clinical Impression: Constipation Qualifiers: Constipation type: unspecified constipation type Qualified Code(s): K59.00 - Constipation, unspecified Knee pain, bilateral Qualifiers: Chronicity: unspecified Qualified Code(s): M25.561 - Pain in right knee; M25.5 62 - Pain in left knee Disposition: HOME, SELF-CARE Instructions: Constipation ([facility]), Sprained Knee ([facility]) Additional Instructions: try miralax over the counter for constipation use ibuprofen for knee pain follow up with a primary doctor as an outpatient Referrals: EDIL ALEJANDRO MD [ACTIVE STAFF] - Follow up as needed Print Language: [place]
[2019-04-08 10:06] LABS: APPEARANCE,URINE CLEAR; BILIRUBIN,URINE NEGATIVE (NEGATIVE); COLOR,URINE COLORLESS; GLUCOSE, URINE NEGATIVE (NEGATIVE); KETONES,URINE NEGATIVE (NEGATIVE); LEUKOCYTE ESTERASE,URINE NEGATIVE (NEGATIVE); NITRITE,URINE NEGATIVE (NEGATIVE); PROTEIN,URINE NEGATIVE (NEGATIVE); URINE SPECIFIC GRAVITY 1.002; UROBILINOGEN,URINE NEGATIVE mg/dL (<2.0)
[2019-04-08 10:07] LABS: ABSOLUTE BASOPHILS # (AUTO) 0.1 10^3/uL (0.0-0.2); ABSOLUTE EOSINOPHILS # (AUTO) 0.1 10^3/uL (0.0-0.6); ABSOLUTE LYMPHOCYTES (AUTO) 2.2 10^3/uL (0.5-4.7); ABSOLUTE MONOCYTES (AUTO) 0.6 10^3/uL (0.1-1.4); ABSOLUTE NEUT (AUTO) 4.4 10^3/uL (1.7-8.2); BASOPHILS % (AUTO) 0.8 % (0-2); EOSINOPHILS % (AUTO) 1.6 % (0-6); HEMATOCRIT 39.8 % (36.0-47.0); HEMOGLOBIN 13.4 g/dL (12.0-15.5); LYMPHOCYTES % (AUTO) 30.2 % (13-45); MEAN CORPUSCULAR HGB CONC 33.6 g/dL (32.0-36.0); MEAN CORPUSCULAR VOLUME 86 fl (80-97); MONOCYTES % (AUTO) 8.1 % (3-13); PLATELET COUNT 318 10^3/uL (150-450); RED BLOOD COUNT 4.62 10^6/uL (3.72-5.28); RED CELL DISTRIBUTION WIDTH 14.3 % (11.5-14.0); SEGMENTED NEUTROPHILS % (AUTO) 59.3 % (42-78); TOTAL CELLS COUNTED % (AUTO) 100 %; WHITE BLOOD COUNT 7.4 10^3/uL (4.0-10.5)
[2019-04-08 10:10] LABS: ADD MANUAL MICROSCOPIC YES
[2019-04-08 10:22] LABS: RBC,URINE NONE SEEN /HPF; WBC,URINE NONE SEEN /HPF
[2019-04-08 10:29] LABS: ALBUMIN 4.5 g/dL (3.5-5.0); ALKALINE PHOSPHATASE 58 U/L (38-126); ANION GAP 9 (5-19); ASPARTATE AMINO TRANSFERASE 25 U/L (14-36); BILIRUBIN,DIRECT 0.1 mg/dL (0.0-0.4); BILIRUBIN,TOTAL 0.5 mg/dL (0.2-1.3); BLOOD UREA NITROGEN 8 mg/dL (7-20); CALCIUM 9.1 mg/dL (8.4-10.2); CARBON DIOXIDE 28 mmol/L (22-30); CHLORIDE 102 mmol/L (98-107); GLUCOSE 87 mg/dL (75-110); POTASSIUM 3.8 mmol/L (3.6-5.0); TOTAL PROTEIN 8.1 g/dL (6.3-8.2)
[2019-04-08 12:30] VITALS: BP 94/51
== END 2019-04-08 12:30 | disposition home or self-care (01) ==
LOC: ER 07:15
DX: K59.00 Constipation, unspecified (principal); M25.561 Pain in right knee; M25.562 Pain in left knee
CPT/HCPCS: 36415; 83690; 85025; 81025; 80053; 81001; J7030; 96360; 99284